=== PATIENT | female | born 1970 | race African-American/Black ===

== ENCOUNTER 2016-11-09 06:23 | Emergency (ER) | payer OTHER ==
--- NOTE | 2016-11-09 06:59 | PDOC ---
History of Present Illness - General History Source: Patient Exam Limitations: No Limitations - History of Present Illness Initial Comments: 11/09/16 07:09 The patient is a 46-year-old female with a significant past medical history of HTN, HLD, hypothyroidism, and ashy dermatosis, and presents to the emergency department with left leg pain for 8 days. She states she has been having intermittent left leg pain for the last 2 months, and the latest episode started 8 days ago. She reports the pain is located in the posterior thigh, posterior calf, and anterior lower leg. She describes the pain as a throbbing sensation. She notes the pain used to be present only at rest, but is now present while walking and sitting too. She has difficulty sleeping due to the pain. She states she has had 2 Dopplers in July which came back negative. She reports she participates in PT and takes muscle relaxants with no significant relief of pain. She denies any shooting pain from the lower back or buttock region. She denies any swelling in the LE's. The patient denies chest pain, shortness of breath, headache and dizziness. The patient denies fever, chills, nausea, vomit, diarrhea and constipation. The patient denies dysuria, frequency, urgency and hematuria. Allergies: NKDA Past Surgical History: None reported Social History: No toxic habits reported <Jayda Almendarez - Last Filed: 11/09/16 07:09> <Makeda Davis - Last Filed: 11/09/16 19:45> - General Chief Complaint: Pain, Acute Stated Complaint: LEFT THIGH AND CALF PAIN Time Seen by Provider: 11/09/16 06:46 Past History <Jayda Almendarez - Last Filed: 11/09/16 07:09> <Makeda Davis - Last Filed: 11/09/16 19:45> - Past Medical History Allergies/Adverse Reactions: Allergies Allergy/AdvReac Type Severity Reaction Status Date / Time No Known Allergies Allergy Verified 11/09/16 07:01 Home Medications: Ambulatory Orders Levothyroxine [Synthroid -] 25 mcg PO DAILY 11/09/16 Methocarbamol [Robaxin -] 500 mg PO BID #14 tablet 11/09/16 Naproxen [Naprosyn -] 500 mg PO BID #14 tablet 11/09/16 Tizanidine HCl [Zanaflex] 4 mg PO DAILY 11/09/16 Review of Systems - Review of Systems Able to Perform ROS?: Yes Comments:: 11/09/16 07:09 CONSTITUTIONAL: Absent: fever, chills, diaphoresis, generalized weakness, malaise, loss of appetite HEENT: Absent: rhinorrhea, nasal congestion, throat pain, throat swelling, difficulty swallowing, mouth swelling, ear pain, eye pain, visual changes CARDIOVASCULAR: Absent: chest pain, syncope, palpitations, irregular heart rate, lightheadedness , peripheral edema RESPIRATORY: Absent: cough, shortness of breath, dyspnea with exertion, orthopnea, wheezing, stridor, hemoptysis GASTROINTESTINAL: Absent: abdominal pain, abdominal distension, nausea, vomiting, diarrhea, constipation, melena, hematochezia GENITOURINARY: Absent: dysuria, frequency, urgency, hesitancy, hematuria, flank pain, genital pain MUSCULOSKELETAL: Present: (+) left leg pain Absent: arthralgia, joint swelling SKIN: Absent: rash, itching, pallor HEMATOLOGIC/IMMUNOLOGIC: Absent: easy bleeding, easy bruising, lymphadenopathy, frequent infections ENDOCRINE: Absent: unexplained weight gain, unexplained weight loss, heat intolerance, cold intolerance NEUROLOGIC: Absent: headache, focal weakness or paresthesias, dizziness, unsteady gait, seizure, mental status changes, bladder or bowel incontinence PSYCHIATRIC: Absent: anxiety, depression, suicidal or homicidal ideation, hallucinations. <Jayda Almendarez - Last Filed: 11/09/16 07:09> *Physical Exam - Vital Signs Last Vital Signs Temp Pulse Resp BP Pulse Ox 97.8 F 102 H 16 157/112 100 11/09/16 06:57 11/09/16 06:57 11/09/16 06:57 11/09/16 06:57 11/09/16 06:57 - Physical Exam Comments: 11/09/16 07:10 GENERAL: Well developed, well nourished. Awake and alert. No acute distress. HEENT: Normocephalic, atraumatic. PERRLA, EOMI. No conjunctival pallor. Sclera are non- icteric. Moist mucous membranes. Oropharynx is clear. NECK: Supple. Full ROM. No JVD. Carotid pulses 2+ and symmetric, without bruits. No thyromegaly. No lymphadenopathy. CARDIOVASCULAR: Regular rate and rhythm. No murmurs, rubs, or gallops. Distal pulses are 2+ and symmetric. PULMONARY: No evidence of respiratory distress. Lungs clear to auscultation bilaterally. No wheezing, rales or rhonchi. ABDOMINAL: Soft. Non-tender. Non-distended. No rebound or guarding. No organomegaly. Normoactive bowel sounds. MUSCULOSKELETAL Normal range of motion at all joints. No bony deformities or tenderness. No CVA tenderness. EXTREMITIES: (+) Left leg is taut. (+) Tight hamstring. (+) Pain in calf. No cyanosis. No clubbing. No edema. SKIN: Warm and dry. Normal capillary refill. No rashes. No jaundice. NEUROLOGICAL: Alert, awake, appropriate. Cranial nerves 2-12 intact. No deficits to light touch and temperature in face, upper extremities and lower extremities. No motor deficits in the in face, upper extremities and lower extremities. Normoreflexic in the upper and lower extremities. Normal speech. Toes are down- going bilaterally. PSYCHIATRIC: Cooperative. Good eye contact. Appropriate mood and affect. <Jayda Almendarez - Last Filed: 11/09/16 07:09> ED Treatment Course - RADIOLOGY Radiology Studies Ordered: Category Date Time Status FEMUR-LEFT [RAD] Stat Radiology 11/09/16 06:57 Ordered LEG TIB/FIB-LEFT [RAD] Stat Radiology 11/09/16 06:58 Ordered <Makeda Davis - Last Filed: 11/09/16 19:45> Medical Decision Making - Medical Decision Making 11/09/16 07:21 Pt comes with hamstring and calf pain left >> right. No skin redness or warmth ; no swelling; bilateral legs appear equal in size. Pulses intact. 11/09/16 07:23 Pt had 2 duplex sonos in the recent past that demonstrated that she has no DVT; pt is requesting XRs as she has never had any and she is concerned that her leg pain may be due to bone pathology. Pt is taking muscle relaxants with not enough relief. She has ibuprofen. She has been getting physical therapy and has been doing stretches with little relief. We will get Xrays of femur and tib/fib. Analgesics and follow with ortho as previously scheduled. Home with marie Sign out to day ER doc. <Makeda Davis - Last Filed: 11/09/16 19:45> *DC/Admit/Observation/Transfer - Attestations Scribe Attestion: 11/09/16 07:10 Documentation prepared by Jayda Almendarez, acting as senior medical director for Makeda Davis MD. <Jayda Almendarez - Last Filed: 11/09/16 07:09> <Makeda Davis - Last Filed: 11/09/16 19:45> Diagnosis at time of Disposition: Pinched nerve - Discharge Dispostion Disposition: HOME - Prescriptions Prescriptions: Naproxen [Naprosyn -] 500 mg PO BID #14 tablet Methocarbamol [Robaxin -] 500 mg PO BID #14 tablet - Patient Instructions Printed Discharge Instructions: DI for Sciatica
[2016-11-09 07:01] VITALS: BMI 27.2
[2016-11-09] MEDS ORDERED: METHOCARBAMOL 500 MG TABLET PO ONE (07:22)
[2016-11-09] MEDS ORDERED: METHOCARBAMOL 500 MG TABLET ONE (07:42)
--- NOTE | 2016-11-09 07:48 | PDOC ---
*Physical Exam - Vital Signs Last Vital Signs Temp Pulse Resp BP Pulse Ox 97.8 F 102 H 16 157/112 100 11/09/16 06:57 11/09/16 06:57 11/09/16 06:57 11/09/16 06:57 11/09/16 06:57 Medical Decision Making - Medical Decision Making 11/09/16 07:41 Patient taken over from Dr. Mcadams - reporting a history of L leg pain. 11/09/16 07:52 On re-examination of the patient Ms. Gold reports a 2 month history of shotting pain in her Left leg. She has previously discussed this problem with her PCP and has been told she has a pinched nerve. She is scheduled for an Orthopedic surgery consult on for this problem. XR was previously ordered and looks without fault or gross abnormality, will send to imaging manager of transportation for further evaluation. 11/09/16 08:36 XR read by imaging manager of transportation as without abnormality. Will D/C to home for f/u care with orthopedist. *DC/Admit/Observation/Transfer Diagnosis at time of Disposition: Pinched nerve - Discharge Dispostion Disposition: HOME - Prescriptions Prescriptions: Naproxen [Naprosyn -] 500 mg PO BID #14 tablet Methocarbamol [Robaxin -] 500 mg PO BID #14 tablet - Patient Instructions Printed Discharge Instructions: DI for Sciatica - Attestations Physician Attestion: 11/09/16 08:40 I, Dr. Blake Sanchez, attest that this document has been prepared under my direction and personally reviewed by me in its entirety. I further attest, that it accurately reflects all work, treatment, procedures and medical decision -making performed by me.
[2016-11-09 09:00] VITALS: BP 149/89; PULSE 85; TEMP 98.1
== END 2016-11-09 09:00 | disposition home or self-care (01) ==
LOC: JER 06:23
DX: G54.2 Cervical root disorders, not elsewhere classified (principal); I10 Essential (primary) hypertension; E78.5 Hyperlipidemia, unspecified; E03.9 Hypothyroidism, unspecified; L98.8 Other specified disorders of the skin and subcutaneous tissue
CPT/HCPCS: 73552-TC-LT; 73590-TC-LT; 99282-25